=== PATIENT | male | born 1955 | race Two or more races ===

== ENCOUNTER 2017-09-25 13:37 | Emergency (ER) | payer MEDICAID ==
[~2017-09-25] VITALS: Ht 134.6 cm; Wt 46.3 kg
[2017-09-25 15:01] VITALS: BP 142/82
[2017-09-25] MEDS ORDERED: IBUPROFEN 800 MG TAB PO ONE (15:30)
== END 2017-09-25 15:56 | disposition home or self-care (01) ==
LOC: ER 13:37
DX: S52.502A Unspecified fracture of the lower end of left radius, initial encounter for closed fracture (principal); S52.602A Unspecified fracture of lower end of left ulna, initial encounter for closed fracture; W18.39XA Other fall on same level, initial encounter; Z88.0 Allergy status to penicillin; Y93.89 Activity, other specified; Y92.89 Other specified places as the place of occurrence of the external cause; Y99.8 Other external cause status
CPT/HCPCS: 29125; 73110